=== PATIENT | female | born 1965 | race Two or more races ===

== ENCOUNTER → 2018-01-02 | Day surgery (SDC) | payer BC ==
[~2018-01-02] MED LIST: PROPOFOL 40 ML IV
[2018-01-02] MEDS: IV RINGERS,LACTATED 1000ML 1,000 ML IV (11:39)
== END | disposition home or self-care (01) ==
LOC: SURG 11:17
DX: Z12.11 Encounter for screening for malignant neoplasm of colon (principal); D12.5 Benign neoplasm of sigmoid colon; E78.00 Pure hypercholesterolemia, unspecified; Z86.11 Personal history of tuberculosis; Z98.890 Other specified postprocedural states; Z79.899 Other long term (current) drug therapy
CPT/HCPCS: 45380; 45385; 88305; J2704